=== PATIENT | female | born 1960 | race Caucasian/White ===

== ENCOUNTER 2022-02-27 20:32 | Emergency (ER) | payer BC ==
[2022-02-27] MEDS ORDERED: Ondansetron PF 4 MG/2 ML Vial ONE (21:59)
[2022-02-27 22:07] LABS: #Eosinphils 0.1 10x3/uL (0.0-0.5); #Monocytes 0.5 10x3/uL (0.0-1.1); #Neutrophils 1.7 10x3/uL (1.5-8.4); %Basophils 0.3 % (0.0-2.0); %Eosinophils 4.1 % (0.0-6.0); %Lymphocytes 27.7 % (18.0-47.0); %Monocytes 14.3 % (0.0-10.0); %Neutrophils 53.3 % (40.0-75.0); Hemoglobin 13.8 g/dL (12.0-15.5); Mean Corpuscular HGB CONC 33.8 g/dL (32.0-36.0); Mean Corpuscular Hemoglobin 31.2 pg (27.0-33.0); Mean Corpuscular Volume 92.1 fl (81.6-98.3); Mean Platelet Volume 10.3 fl (7.4-10.4); Platelet Count 192 10x3/uL (150-450); RBC Distribution Width 13.2 % (11.5-14.5); Red Blood Cell (RBC) Count 4.43 10x6/uL (3.90-5.03); White Blood Cell (WBC) Count 3.1 10x3/uL (3.5-10.5)
[2022-02-27 22:16] LABS: ALT (SGPT) 92 U/L (8-55); AST (SGOT) 76 U/L (5-34); Albumin 4.4 g/dL (3.4-4.8); Alkaline Phosphatase 70 U/L (40-110); Anion Gap 14 mmol/L (10-20); BUN (Urea Nitrogen) 16 mg/dL (9.8-20.1); Bilirubin, Total 0.4 mg/dL (0.2-1.2); Calc. Creatinine Clearance 0 mL/min (70-130); Carbon Dioxide 27 mmol/L (23-31); Chloride 104 mmol/L (98-107); Estimated GFR 71; Globulin 3.2 g/dL (2.4-3.5); Glucose 155 mg/dL (80-115); Potassium 3.8 mmol/L (3.5-5.1); Protein, Total 7.6 g/dL (5.8-8.1); Sodium 141 mmol/L (136-145)
== END 2022-02-27 23:00 | disposition home or self-care (01) ==
LOC: CSHERS 20:32
DX: U07.1 COVID-19 (principal); G43.909 Migraine, unspecified, not intractable, without status migrainosus
CPT/HCPCS: 70450; 80053; 83735; 84443; 85025; 96361; 96374; J2405; U0003; U0005

== ENCOUNTER 2024-08-28 10:54 | Day surgery (SDC) | payer MEDICARE ==
[2024-08-27 13:00] VITALS: BMI 23.7
[2024-08-28] MEDS ORDERED: Bupivacaine PF 0.5% 30 ML VIAL ONE (13:04)
[2024-08-28] MEDS ORDERED: Clindamycin/D5W 600 mg/50 ml Premix Bag ONE (13:20)
[2024-08-28] MEDS ORDERED: PROPOFOL 20 ML ONE (13:28)
[2024-08-28] MEDS ORDERED: Midazolam HCl 2 mg/2 ml Vial ONE (13:28)
[2024-08-28] MEDS ORDERED: Lidocaine 2% PF 5 ML VIAL ONE (13:28)
[2024-08-28] MEDS ORDERED: Dexamethasone 4 mg/ml Vial ONE (13:28)
[2024-08-28] MEDS ORDERED: Ondansetron PF 4 MG/2 ML Vial ONE (13:28)
[2024-08-28] MEDS ORDERED: fentaNYL 50 mcg/mL 1 mL Vial ONE ×2 (13:28→15:02)
[2024-08-28] MEDS ORDERED: ePHEDrine Sulfate 50 MG/10 ML VIAL ONE (14:04)
[2024-08-28] MEDS ORDERED: HYDROcodone/Acetaminophen 5/325 mg Tablet ONE (15:39)
== END 2024-08-28 16:08 | disposition home or self-care (01) ==
LOC: CSHSDC 10:54
PROVIDERS: ATTEND Podiatrist Foot & Ankle Surgery
PROC: 0QBN0ZZ Excision of Right Metatarsal, Open Approach (ICD-10-PCS; principal; 2024-08-28)
PROC: 0LBV0ZZ Excision of Right Foot Tendon, Open Approach (ICD-10-PCS; 2024-08-28)
PROC: 0QBQ0ZZ Excision of Right Toe Phalanx, Open Approach (ICD-10-PCS; 2024-08-28)
DX: M20.11 Hallux valgus (acquired), right foot (principal); M21.611 Bunion of right foot; M67.471 Ganglion, right ankle and foot; M89.9 Disorder of bone, unspecified; Z88.0 Allergy status to penicillin
CPT/HCPCS: 28092; 28124 ×3; 28292; 73620; J0665; J1100; J2250; J2405; J2704; J3010; J3490